=== PATIENT | female | born 1985 | race Two or more races ===

== ENCOUNTER 2022-10-05 11:23 | Outpatient (REF) | payer MEDICAID, SELFPAY ==
--- NOTE | ~2022-10-05 | XR_ITS ---
EXAMINATION: XR CHEST CLINICAL INFORMATION: Influenza like symptoms. COMPARISON: None TECHNIQUE: 2 views of the chest were obtained. FINDINGS: Lungs are well-inflated and clear. Trachea is midline in position. No interstitial disease, consolidation or mass. No pleural effusion or pneumothorax. Cardiac silhouette and pulmonary vessels are normal in size. The mediastinum and becki have normal contour. The visualized bones, and upper abdomen, are unremarkable. XR/XR chest 2V IMPRESSION: No evidence of pneumonia. No acute cardiopulmonary abnormality.
== END 2022-10-05 11:24 | disposition home or self-care (01) ==
LOC: HO.XRAY 11:23
PROVIDERS: Absent Provider Student in an Organized Health Care Education/Training Program; PCP Student in an Organized Health Care Education/Training Program; Visit Provider Emergency Medicine
DX: R68.89 Other general symptoms and signs (principal)
CPT/HCPCS: 71046

== ENCOUNTER 2023-06-09 11:15 | Outpatient (REF) | payer MEDICAID, SELFPAY ==
[2023-06-12 07:29] LABS: ~HepC Num1 0.05 S/CO (0.00-0.79); ~Hepatitis C Antibody Nonreactive (Nonreactive)
[2023-06-13 16:28] LABS: HIV RNA PCR Qn Copies Not Detected Copies/mL; HIV RNA PCR Qn Log Copies Not Detected Log cps/mL
== END 2023-06-09 11:16 | disposition home or self-care (01) ==
LOC: HO.CHCLDS 11:15
PROVIDERS: Visit Provider Student in an Organized Health Care Education/Training Program
DX: Z00.00 Encounter for general adult medical examination without abnormal findings (principal)
CPT/HCPCS: 36415; 86803; 87536; 87900

== ENCOUNTER 2024-04-11 16:15 | Outpatient (REF) | payer MEDICAID, SELFPAY ==
[2024-04-11 19:13] LABS: Bacterial Vaginosis PCR NEGATIVE (Negative); Candida Group PCR NOT DETECTED (Not Detect); Candida glab krusei PCR NOT DETECTED (Not Detect); Trichomonas vaginalis PCR NOT DETECTED (Not Detect)
[2024-04-11 19:45] LABS: CT PCR NOT DETECTED (Not Detect.); NG PCR NOT DETECTED (Not Detect.)
== END 2024-04-11 16:16 | disposition home or self-care (01) ==
LOC: HO.CHCLNP 16:15
PROVIDERS: Visit Provider Pediatrics
DX: N30.90 Cystitis, unspecified without hematuria (principal)
CPT/HCPCS: 0352U; 87086; 87491; 87591

== ENCOUNTER 2024-08-24 09:52 | Outpatient (REF) | payer MEDICAID, SELFPAY ==
--- NOTE | ~2024-08-24 | MM_ITS ---
EXAMINATION: MM SCREENING DIGITAL BREAST TOMOSYNTHESIS, BILATERAL CLINICAL INFORMATION: Screening. Asymptomatic. COMPARISON: Mammography: Comparison is made with available priors TECHNIQUE: Digital breast mammography with tomosynthesis is performed in both the craniocaudal and mediolateral oblique views along with computer-aided detection (CAD). FINDINGS: There are scattered areas of fibroglandular density (ACR BI-RADS breast composition Category b). There are no significant masses, abnormal calcifications, or other abnormalities. MM/MM tomosynthesis screening BI IMPRESSION: No mammographic evidence of malignancy. ASSESSMENT: BI-RADS BI-RADS 1 - Negative RECOMMENDATION: Routine annual mammography screening. 1 year F/U This examination should not preclude the clinical evaluation of a suspicious palpable abnormality. This patient's information was entered into a reminder system with a target due date for their next mammogram. Electronically signed by: Brittney Armstrong DO 08/30/2024 01:12 PM SUMAN
== END 2024-08-24 09:53 | disposition home or self-care (01) ==
LOC: HO.MAMMO 09:52
PROVIDERS: Visit Provider Student in an Organized Health Care Education/Training Program
DX: Z12.31 Encounter for screening mammogram for malignant neoplasm of breast (principal)
CPT/HCPCS: 77063; 77067

== ENCOUNTER → 2024-08-24 10:15 | Outpatient (BNV) | payer MEDICAID, SELFPAY | PROVIDERS: Visit Provider Internal Medicine | DX: Z12.31 Encounter for screening mammogram for malignant neoplasm of breast (principal) | CPT/HCPCS: 77063; 77067 ==

== ENCOUNTER 2025-06-27 08:44 | Outpatient (REF) | payer MEDICAID, SELFPAY ==
--- NOTE | ~2025-06-27 | XR_ITS ---
EXAMINATION: XR HIP 2 OR MORE VIEWS LEFT HISTORY: M25.552 - Pain in left hip COMPARISON: There are no prior studies available for comparison. FINDINGS: A single AP view of the pelvis and two views of the left hip are submitted. Osseous mineralization is normal. There is no fracture or dislocation. The joint space is maintained. The soft tissues are unremarkable. XR/XR hip LT min 2V IMPRESSION: Unremarkable examination of the left hip. Electronically signed by: Pelon Li MD 06/27/2025 11:32 AM EDT
--- OUTSIDE RECORDS SUMMARY | 2025-07-01 09:15 | XMS_ITS | Encounter Summary ---
Author Organization [employer] Address [address] [place] [address] Care Team Providers Care Health Information Coder Name Role Phone Palak Thurston MD Primary Care Provider [phone] Encounter Details Date Type Department Care Team (Latest Contact Info) Description 11/16/2018 Abstract [facility] CONVERSIONS Dental, Provider, DDS Social History Tobacco Use Types Packs/Day Years Used Date Smoking Tobacco: Never Assessed Comments Unknown Sex and Gender Information Value Date Recorded Sex Assigned at Female 07/18/2022 10:18 AM EDT Legal Sex Female 10:18 AM EDT Gender Identity Female 07/18/2022 10:18 AM EDT Sexual Orientation Straight 07/18/2022 10 :18 AM EDT documented as of this encounter Plan of Treatment Not on file documented as of this encounter Visit Diagnoses Not on filedocumented in this encounter Care Teams Health Information Coder Relationship Specialty Start Date End Date Palak Thurston MD [address] [place] [id number] PCP - General Family Medicine 08/17/12 documented as of this encounter
--- OUTSIDE RECORDS SUMMARY | 2025-07-01 09:15 | XMS_ITS | Clinical Summary ---
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 1 each 3 Active nicotine polacrilex (Commit) 4 MG lozengeIndicatio ns:Tobacco dependence Dissolve 1 lozenge (4 mg) in the mouth every 1 (one) hour if needed for smoking cessation. 100 lozenge 3 Active cholecalciferol (D3-5) 5,000 Units tablet Take 1 tablet by mouth once a week. 2 Active cyclobenzaprine (Flexeril) 5 MG tablet Take 1 tablet by mouth at bed time. 2 Active ferrous sulfate 325 (65 Fe) MG tablet Take 1 tablet by mouth at bed time. 2 Active nicotine (Nicoderm, Step 1) 21 MG/24HR patch Place 1 patch on the skin at bed time. 2 Active ibuprofen 400 MG tabletIndication s:Influenza-like symptoms Take 1 tablet (400 mg) by mouth every 6 (six) hours if needed for moderate pain or fever for up to 120 doses. 30 tablet 3 4 Active albuterol 108 (90 Base) MCG/ACT inhalerIndicatio ns:Moderate persistent asthma without complication Inhale 2 puffs every 4 (four) hours if needed for wheezing or shortness of breath. 18 g 1 5 026 Active albuterol (2.5 MG/3ML) 0.083% nebulizer solutionIndicati ons:Moderate persistent asthma without complication Take 3 mL (2.5 mg) by nebulization every 6 (six) hours if needed for wheezing or shortness of breath. 75 mL 1 5 026 Active meloxicam (Mobic) 7.5 MG tablet Take 1 tablet (7.5 mg) by mouth every 12 (twelve) hours. 60 tablet 11 5 026 Active doxycycline (Vibra-Tabs) 100 MG tablet TAKE 1 TABLET BY MOUTH ONCE PER DAY. TAKE WITH A FULL GLASS OF WATER AND DO NOT LIE DOWN FOR AT LEAST 30 MINUTES AFTER. 30 tablet 5 Active hydrOXYzine HCl (Atarax) 25 MG tablet TAKE 1 TABLET BY MOUTH AT BEDTIME NEEDED FOR ANXIETY 30 tablet 5 Active Active Problems Problem Noted Date Diagnosed Date Hidradenitis suppurativa 01/30/2025 Anxiety 01/30/2025 Moderate persistent asthma without complication 06/09/2023 Left foot pain 05/11/2023 Assessment & Plan (05/11/2023 10:59 AM EDT): Patient stepped on radha nail with L foot. Up to date with tetanus shot. No erythema, infection, or swelling upon examination. Smoker 05/11/2023 Assessment & Plan (05/11/2023 11:00 AM EDT): PCV vaccine administered. Encounters Date Type Department Care Team Description 05/21/2025 Telephone [facility] [address] [place], [place] [phone] Palak Thurston MD No Show 05/20/2025 Telephone [facility] [address] [place], [place] [phone] Palak Thurston MD Chart Prep from Last 3 Months Immunizations Immunization Administration Dates Next Due Influenza injectable quadriv alent IIV4 with preservative 07/10/2018 Pneumococcal Conjugate PCV 20 05/11/2023 Tdap 07/10/2018 Social History Tobacco Use Types Packs/Day Years Used Date Smoking Tobacco: Every Day Cigarettes 0.5 20 Passive Smoke Exposure: Never Smokeless Tobacco: Never Tobacco Cessation:Ready to Q uit: Not Asked; Counseling Given: Not Answered Alcohol Use Standard Drinks/Week Comments Never 0 (1 standard drink = 0.6 oz pur e alcohol) Depression Answer Date Recorded Patient Health Questionnaire-9 Score 7 01/30/2025 Patient Health Questionnaire-9 Score 7 01/30/2025 Last PHQ-9: Questionnaire Data Not on file 0 01/30/2025 Housing Stability Answer Date Recorded What is your housing situation today? I have constantino hamilton 01/22/[address] you li ve. Do you have problems with any of the following? None of the above 01/22/2025 Food Insecurity Answer Date Recorded Within the past 12 months, y ou worried that your food would run out before you got money to buy more: Never True 01/22/2025 Within the past 12 months,th e food you bought just didn't last and you didn't have enough money to get more: Never True 03/2025 Transportation Answer Date Recorded In the past 12 months, has l ack of transportation kept you from medical appts, meetings, work or from getting things needed for daily living? Yes, it has kept me from medical appointments or getting medications. 01/22/2025 Utilities Answer Date Recorded In the past 12 months, has t he electric, gas, oil or water company threatened to shut off services in your home? Yes 01/22/2025 Depression Answer Date Recorded Patient Health Questionnaire-2 Score 2 01/30/2025 Internet Access Answer Date Recorded Internet Access Q1 Yes 01/22/2025 Internet Access Q2 Not on file 01/22/2025 Comments No Sex and Gender Information Value Date Recorded Sex Assigned at Female 07/18/2022 10:18 AM EDT Legal Sex Female 10:18 AM EDT Gender Identity Female 07/18/2022 10:18 AM EDT Sexual Orientation Straight 07/18/2022 10 :18 AM EDT Last Filed Vital Signs Vital Sign Reading Time Taken Comments Blood Pressure 142/77 01/30/2025 9:02 AM EDT Pulse 72 01/30/2025 9:02 AM EDT Temperature 36.7 C (98 F) 01/30/2025 9:02 AM EDT Respiratory Rate 18 01/30/2025 9:02 AM EDT Oxygen Saturation 99% 01/30/2025 9:02 AM EDT Inhaled Oxygen Concentration - - Weight 127 kg (281 lb) 01/30/2025 9:02 AM EDT Height 163.8 cm (5' 4.5 ) 01/30/2025 9:02 AM EDT Body Mass Index 47.49 01/30/2025 9:02 AM EDT Plan of Treatment Health Maintenance Due Date Last Done Comments HIV Screening 1985 Disability Screening 1985 Alcohol/Substance Use Screening 1995 Family Planning (PISQ) 11/18/1998 HPV Vaccines (1 - 3-dose series) 11/18/1998 Hepatitis B Vaccines (1 of 3 - 19+ 3-dose series) 11/18/2002 Dental X-Ray: Full Mouth 11/17/2021 11/16/2018 Dental Oral Exam 09/29/2023 03/28/2023, , 11/16/2018, Additional history exists Dental Prophylaxis 09/29/2023 03/28/2023 Dental X-Ray: Bitewings 03/29/2024 03/28/20, 06/12/2019, 11/16/2018 COVID-19 Vaccine ( season) 2025 Influenza Vaccine (#1) 2025 07/10/2018 SDOH Screening 01/22/2026 01/22/2025 Depression Screening 01/30/2026 01/30/2025, 01/31/20 Tobacco Screening 01/30/2026 01/30/2025 Mammogram 08/24/2026 08/24/2024 Lipid Panel 02/23/2027 02/23/2022 Cervical Cancer Screening 04/05/2027 HPV/Cotest 04/05/2027 04/05/2022 Pap Smear 04/05/2027 04/05/2022 DTaP/Tdap/Td Vaccines (2 - Td or Tdap) 07/10/2028 07/10/2018 Zoster Vaccines (1 of 2) 11/18/2033 RSV Patients and Patients Aged 60 years or older (1 - 1-dose 75+ series) 11/18/2058 Pneumococcal Vaccine: Pediatrics (0 to 5 Years) and At-Risk Patients (6 to 49) Years Completed 05/11/2023 Hepatitis C Screening Completed 06/09/2023 HIB Vaccines Aged Out No longer eligi ble based on patient's age to complete this topic Hepatitis A Vaccines Aged Out No long er eligible based on patient's age to complete this topic IPV Vaccines Aged Out No longer eligi ble based on patient's age to complete this topic Meningococcal B Vaccine Aged Out No l onger eligible based on patient's age to complete this topic Meningococcal Vaccine Aged Out No aurora dennis eligible based on patient's age to complete this topic RSV under 20 months Aged Out No longe r eligible based on patient's age to complete this topic Rotavirus Vaccines Aged Out No longer eligible based on patient's age to complete this topic Procedures Procedure Name Priority Date/Time Associated Diagnosis Comments BI MAMMOGRAM SCREENING TOMOSYNTHESIS BILATERAL Routine 08/24/2024 10:15 AM EST Breast cancer screening by mammogram HEPATITIS C AB W/REFL TO HCV RNA, QN, PCR Routine 06/09/2023 11:22 AM EDT PE (physical exam), annual PROPHYLAXIS - ADULT Routine 03/28/2023 1 1:00 AM EDT BITEWINGS - 4 RADIOGRAPHIC IMAGES Routine 03/28/2023 11:00 AM EDT PERIODIC ORAL EVALUATION - ESTABLISHED PATIENT Routine 03/28/2023 10:30 AM EDT THINPREP IMAGING PAP AND HPV MRNA E6/E7, WITH CT/NG, TRICHOMONAS Routine 04/05/2022 1:10 PM EDT LIPID PANEL, STANDARD Routine 02/23/2022 10:12 AM EDT INTRAORAL - COMPLETE SERIES OF RADIOGRAPHIC IMAGES Routine 11/16/2018 12:00 AM EST from Last 3 Months or Most Recently Relevant to Health Maintenance Results * BI Mammogram Screening Tomosynthesis Bilateral (08/24/2024 10:15 AM EST) Anatomical Region Laterality Modality Breast Bilateral Mammography 08/24/2024 10:1 5 AM EST Narrative 08/30/2024 1:16 PM EST [place] [facility] [address] [place] [address] Mammography Report Signed Patient: Josyln Mayo MR# : [id number] : 1985 Acct:[id number] Age/Sex: 38 / F ADM Date: 08/24/24 Loc: HO.MAMMO Attending Dr: Palak Thurston MD Ordering Physician: Isela Lowry MD Results: 1Ne gative Date of Service: 08/24/24 Follow Up: 1 Year From Orig inal Mammogram Procedure(s): MM tomosynthesis screening BI Accession Number(s): [id number] cc: Isela Lowry MD EXAMINATION: MM SCREENING DIGITAL BREAST TOMOSYNTHESIS, BILATERAL CLINICAL INFORMATION: Screening. Asymptomatic. COMPARISON: Mammography: Comparison is made with available priors TECHNIQUE: Digital breast mammography with tomosynthesis is performed in both the craniocaudal and mediolateral oblique views along with computer-aided detection (CAD). FINDINGS: There are scattered areas of fibroglandular density (ACR BI-RADS breast composition Category b). There are no significant masses, abnormal calcifications, or other abnormalities. MM/MM tomosynthesis screening BI IMPRESSION: No mammographic evidence of malignancy. ASSESSMENT: BI-RADS BI-RADS 1 - Negative RECOMMENDATION: Routine annual mammography screening. 1 year F/U This examination should not preclude the clinical evaluation of a suspicious palpable abnormality. This patient's information was entered into a reminder system with a target due date for their next mammogram. 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 [address] Mammography Report Signed Patient: Misti MayoR# : [id number] : 1985Acct:[id number] Age/Sex: 38 / FADM Date: 08/24/24 Loc: HO.MAMMO Attending Dr: Palak Thurston MD Ordering Physician: Isela Lowry MDResults: 1Ne gatkathy Date of Service: 08/24/24Follow Up: 1 Year From Orig inal Mammogram Procedure(s): MM tomosynthesis screening BI Accession Number(s): [id number] cc: Isela Lowry MD EXAMINATION: MM SCREENING DIGITAL BREAST TOMOSYNTHESIS, BILATERAL CLINICAL INFORMATION: Screening. Asymptomatic. COMPARISON: Mammography: Comparison is made with available priors TECHNIQUE: Digital breast mammography with tomosynthesis is performed in both the craniocaudal and mediolateral oblique views along with computer-aided detection (CAD). FINDINGS: There are scattered areas of fibroglandular density (ACR BI-RADS breast composition Category b). There are no significant masses, abnormal calcifications, or other abnormalities. MM/MM tomosynthesis screening BI IMPRESSION: No mammographic evidence of malignancy. ASSESSMENT: BI-RADS BI-RADS 1 - Negative RECOMMENDATION: Routine annual mammography screening. 1 year F/U This examination should not preclude the clinical evaluation of a suspicious palpable abnormality. This patient's information was entered into a reminder system with a target due date for their next mammogram. Electronically signed by: Brittney Armstrong DO 08/30/2024 01:12 PM [facility] Dictated By: Brittney Armstrong DO Signed By: <Electronically signed by Brittney Armstrong DO in OV> 08/30/24 1312 DD/ 1015 TD/TT: 08/24/24 1021 Furnace Mechanic Helper: us Isela Lowry MD IMG BI PROCEDURES Final Resul t * Hepatitis C Antibody with Reflex to HCV, RNA, Quantitative, Real-Time PCR (06/09/2023 11:22 AM EDT) Hepatitis C Antibody Nonreactive Nonreactive [facility] Comment:Antibodies to HCV no t detected; does not exclude early acuteHCV infection. Blood Venous blood specimen / Unknown 06/09/2023 11:22 AM EDT 06/09/2023 2:25 PM EDT us Palak Thurston MD LAB BLOOD ORDERABLES Final Resul t [facility] [address] [place] [phone] * THINPREP TIS PAP AND HPV mRNA E6/E7, CT/NG, TRICH (04/05/2022 1:10 PM EDT) Chlamydia trachomatis RNA, TMA, Urogenital NOT DETECTED NOT DETECTED [facility] Clinical Information: None given [facility] COMMENT SEE COMMENT [facility] Comment: The analytical performance characteristics of this assay, when used to test SurePath(TM) specimens have been determined by [employer]. The modifications have not been cleared or approved by the FDA. This assay has been validated pursuant to the CLIA regulations and is used for clinical purposes. For additional information, please refer to https://makerSQR.buuteeq/faq/KBQ408 (This link is being provided for information/ educational purposes only.) COMMENT SEE COMMENT [facility] Comment: EXPLANATORY NOTE: The Pap is a screening test for cervical cancer. It is not a diagnostic test and is subject to false negative and false positive results. It is most reliable when a satisfactory sample, regularly obtained, is submitted with relevant clinical findings and history, and when the Pap result is evaluated along with historic and current clinical information. COMMENT: This Pap test has been evaluated with computer assisted technology. [facility] Elderly Caregiver: SEE COMMENT [facility] Comment: CXP, CT(ASCP) CT screening location: [address] [address] HPV nRNA E6/E7 Not Detected Not Detected [facility] Comment: Methodology: Senior Inspector-Mediated Amplification This assay detects E6/E7 viral messenger RNA (mRNA) from 14 high-risk HPV types (16,18,31,33,35,39,45,51,52,56,58,59,66,68). Cervical sources are required for HPV testing. If a vaginal source from a patient who has had a total hysterectomy with removal of cervix was submitted, please contact the testing laboratory for alternative testing options. For additional information, please refer to http://education.buuteeq/faq/XKV892f3 (This link if provided for information/ educational purposes only.) Interpretation/Re sult: Negative for intraepithelial lesion or malignancy. [facility] LMP: NONE GIVEN [facility] Neisseria gonorrhoeae RNA, TMA, Urogenital NOT DETECTED NOT DETECTED [facility] Prev. BX: NONE GIVEN [facility] Prev. PAP: NONE GIVEN [facility] SOURCE: None given [facility] Statement Of Adequacy: SEE COMMENT [facility] Comment: Satisfactory for evaluation. Endocervical/transformation zone component absent. Age and/or menstrual status not provided Trichomonas vaginalis, QL, TMA, PAP Vial NOT DETECTED NOT DETECTED [facility] Comment: The analytical performance characteristics of this assay have been determined by [employer]. The modifications have not been cleared or approved by the FDA. This assay has been validated pursuant to the CLIA regulations and is used for clinical purposes. For additional information, please refer to http://makerSQR.buuteeq/ faq/Trichomonastma (This link is being provided for information/ educational purposes only.) 04/05/2022 1:10 PM EDT Herminia GIBSON LAB PATHOLOGY ORDERABLES Final Result [facility] [address] * (ABNORMAL) LIPID PANEL, STANDARD (02/23/2022 10:12 AM EDT) Chol/HDLC Ratio 5.4(H) <5.0 (calc) [facility] Cholesterol, Total 168 <200 mg/dL [facility] HDL Cholesterol 31(L) > OR = 50 mg/dL [facility] LDL Cholesterol 105(H) mg/dL (calc) [facility] Comment: Reference range: <100 Desirable range <100 mg/dL for primary prevention; <70 mg/dL for patients with CHD or diabetic patients with > or = 2 CHD risk factors. LDL-C is now calculated using the Freddy calculation, which is a validated novel method providing better accuracy than the Friedewald equation in the estimation of LDL-C. Hang IZAGUIRRE et al. SHARAD. 2013;310(19): 2461-2669 (http://education.[employer].com/faq/UMD457) Non-HDL Cholesterol 137(H) <130 mg/dL (calc) [facility] Comment: For patients with diabetes plus 1 major ASCVD risk factor, treating to a non-HDL-C goal of <100 mg/dL (LDL-C of <70 mg/dL) is considered a therapeutic option. Triglycerides 205(H) <150 mg/dL [facility] Comment: If a non-fasting specimen was collected, consider repeat triglyceride testing on a fasting specimen if clinically indicated. Myra et al. J. of Clin. Lipidol. 2015;9:129-169. 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
== END 2025-06-27 08:45 | disposition home or self-care (01) ==
LOC: HO.HOSX 08:44
PROVIDERS: Visit Provider Physician Assistant
DX: M70.62 Trochanteric bursitis, left hip (principal); M67.952 Unspecified disorder of synovium and tendon, left thigh; M25.552 Pain in left hip
CPT/HCPCS: 73502; 99212

== ENCOUNTER 2025-06-27 11:09 | Outpatient (AMB) | payer MEDICAID, SELFPAY ==
--- NOTE | 2025-06-27 11:30 | MHC.OFFVIS ---
Vital Signs 06/27/25 11:35 Height 5 ft 4 in Weight 280 lb BMI 48.1 Intake Visit Reasons: [employer]OR- Left hip pain Intake Note: Joslyn is a 39 year old female who presents today as a new patient for an evaluation of left hip pain. Patient referred by PCP. Patient reports ongoing pain for years that has been getting worse. Her pain is located at the lateral aspect of hip and travels down her leg to the anterior aspect of knee. She has difficulties with sleeping and walking. Complaints of weakness in her knee. She denies any traumatic injury however she mentions years ago when she was performing leg exercises she heard a tear. States that she is suppose to have injections to her hip however she is too nervous. She feels she needs more imaging, that her pain does not seem right. Finds no relief with ibuprofen. 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 She states she has been having left hip pain for several years. The pain is located along the lateral aspect of the hip which radiates down the thigh into the knee. She also complains of some left-sided low back pain. She states she has difficulty sleeping on the left side. She has difficulty lifting the leg. She states she was ordered cortisone injections in the past but never followed through. She occasionally takes ibuprofen. [facility] Social History (Updated 06/27/25 @ 11:34 by VÍCTOR Álvarez) Patient Tobacco Use Status: Current everyday Tobacco user Current occupational status: unemployed and student Review of Systems Const All systems reviewed & are unremarkable except as noted in HPI and below Physical Exam Vital Signs: BMI result Body Mass Index 48.1 Const General: cooperative and no acute distress Orientation/consciousness: patient oriented x3 Resp Effort & Inspection: normal respiratory effort and able to speak in complete sentences Cardio Peripheral pulses: Peripheral pulses 2+ throughout Neuro General: patient oriented x3 Extrem Other: Left hip tenderness over the greater troch. She has full range of motion but discomfort with external rotation. She has weakness with both hip flexion and extension against resistance. She has tenderness over the SI joint. Neurovascularly intact. Results Reviewed Results Reviewed: X-rays of the left hip obtained in the office today reviewed by me show evidence of JANICE. Assessment & Plan Assessment & Plan (1) Trochanteric bursitis, left hip: Code(s): M70.62 - Trochanteric bursitis, left hip Category: Medical (2) Tendinopathy of left gluteal region: Code(s): M67.952 - Unspecified disorder of synovium and tendon, left thigh Category: Medical Plan We discussed options today which includes physical therapy. An order was placed and she was given the information to contact and make an appointment. I also sent a prescription for Celebrex to the pharmacy to take twice a day for 2 weeks. I encouraged her to work with therapy to develop a program for daily conditioning to minimize her symptoms. If she continues to have pain over the next 3 months she can contact me for an injection otherwise she will follow up as needed. Orders: Orders XR hip LT min 2V Today M25.552 - Pain in left hip PT Evaluation and Treatment Today M67.952 - Unspecified disorder of synovium and tendon, left thigh, M70.62 - Trochanteric bursitis, left hip Medications: New celecoxib (Celebrex) 200 mg PO BID 60 caps 3RF 30 days Coding Level of Care Code New Pt Level 3 (01219) Complex EM visit Add On G2211 Diagnoses Trochanteric bursitis, left hip M70.62 Tendinopathy of left gluteal region M67.952
[2025-06-27 11:35] VITALS: BMI 48.1
== END 2025-06-27 12:09 | disposition home or self-care (01) ==
LOC: HO.HOS 11:09
PROVIDERS: Visit Provider Physician Assistant
DX: M70.62 Trochanteric bursitis, left hip (principal); M67.952 Unspecified disorder of synovium and tendon, left thigh
CPT/HCPCS: 99203

== ENCOUNTER → 2025-06-27 11:21 | Outpatient (BNV) | payer MEDICAID, SELFPAY | PROVIDERS: Visit Provider Radiology Diagnostic Radiology | DX: M25.552 Pain in left hip (principal) | CPT/HCPCS: 73502 ==

== ENCOUNTER 2025-08-01 11:36 | Outpatient (REF) | payer MEDICAID, SELFPAY ==
[2025-08-01 14:15] LABS: MANUAL DIFF FLAG NO
[2025-08-01 14:21] LABS: Hematocrit 36.7 % (37.0-47.0); Hemoglobin 11.5 g/dl (12.0-16.0); Imm Gran Abs Auto 0.04 X10*3/uL (0.00-0.03); Imm Gran Pct Auto 0.4 % (0.0-0.4); Lymphocytes Absolute Auto 2.4 X10*3/uL (1.2-4.9); Mean Corpuscular HGB Conc 31.3 g/dl (31.0-35.0); Mean Corpuscular Hemoglobin 23.9 pg (27.0-33.0); Mean Corpuscular Volume 76.3 fL (80.0-98.0); NRBC Abs Auto 0.000 X10*3/uL (0.0-0.012); NRBC Pct Auto 0.0 /100WBC (0.0-0.2); Platelet Count 324 X10*3/uL (160-400); Red Blood Count 4.81 X10*6/uL (4.20-5.50); White Blood Count 10.0 X10*3/uL (4.8-10.8)
[2025-08-01 14:41] LABS: Alanine Aminotransferase 14 U/L (0-31); Albumin Level 4.2 g/dL (3.5-5.0); Alkaline Phosphatase 79 U/L (39-117); Anion Gap 10 (12-20); Aspartate Amino Transferase 20 U/L (5-31); Blood Urea Nitrogen 10 mg/dL (9-16); Calcium 9.3 mg/dL (8.4-10.2); Carbon Dioxide 23 mmol/L (22-29); Chloride 110 mmol/L (96-108); Cholesterol 159 mg/dL (<200); Estimated Glomerular Filt Rate > 60; HDL Cholesterol 30 mg/dL (>40); Potassium 3.8 mmol/L (3.3-5.1); Sodium 139 mmol/L (135-145); Total Protein 7.4 g/dL (6.5-8.0); Triglycerides 130 mg/dL (<150)
[2025-08-01 14:59] LABS: Microalbum/Creatinine Ratio Ur 7.7 ug/mg cr (<30)
== END 2025-08-01 11:37 | disposition home or self-care (01) ==
LOC: HO.CHCLDS 11:36
DX: I10 Essential (primary) hypertension (principal); R73.9 Hyperglycemia, unspecified; R68.89 Other general symptoms and signs; Z76.89 Persons encountering health services in other specified circumstances
CPT/HCPCS: 36415; 80053; 80061; 82043; 82570; 83036; 84443; 85025